=== PATIENT | male | born 2000 | race American Indian/Alaskan Native ===

== ENCOUNTER 2022-01-26 13:26 | Emergency (ER) | payer MEDICAID ==
[2022-01-26 14:32] VITALS: BP 122/63
--- NOTE | 2022-01-26 17:44 | Emergency Department Report ---
ED General Adult HPI - General Chief complaint: Abdominal Pain Stated complaint: ABD PAIN/POSS HERNIA Source: patient Mode of arrival: Ambulatory Limitations: No Limitations - History of Present Illness Initial comments: 22-year-old male presents to the ED with complaint of right inguinal hernia. Patient states he is unable to work due to hernia pain. Patient denies any pain at present time. Patient states that he was told to come to the ED to have to get another referral for general surgery. He states that he had a previous referral at [facility] but did not go. He denies any nausea ,vomiting or abdominal pain at present. Patient is alert and oriented x3. No acute distress noted. No ill appearance noted. Onset/Timin -: week(s) Severity scale (0 -10): 0 Consistency: now resolved Improves with: none Worsens with: movement Associated Symptoms: denies other symptoms Treatments Prior to Arrival: none - Related Data Previous Rx's Medication Instructions Recorded Last Taken Type traMADoL [Ultram] 50 mg PO Q6HR PRN 3 Days #12 tablet 01/26/22 Unknown Rx ED Review of Systems ROS: Stated complaint: ABD PAIN/POSS HERNIA Other details as noted in HPI Constitutional: denies: chills, fever Eyes: denies: eye pain, eye discharge, vision change ENT: denies: ear pain, throat pain Respiratory: denies: cough, shortness of breath, wheezing Cardiovascular: denies: chest pain, palpitations Endocrine: no symptoms reported Gastrointestinal: denies: abdominal pain, nausea, diarrhea Genitourinary: denies: urgency, dysuria Musculoskeletal: denies: back pain, joint swelling, arthralgia Skin: denies: rash, lesions Neurological: denies: headache, weakness, paresthesias Psychiatric: denies: anxiety, depression Hematological/Lymphatic: denies: easy bleeding, easy bruising ED Past Medical Hx - Past Medical History Additional medical history: hernia repair - Surgical History Additional Surgical History: hernia repair - Social History Smoking Status: Never Smoker - Medications Home Medications: Home Medications Medication Instructions Recorded Confirmed Last Taken Type traMADoL [Ultram] 50 mg PO Q6HR PRN 3 Days #12 tablet 01/26/22 Unknown Rx ED Physical Exam - General Limitations: No Limitations General appearance: alert, in no apparent distress - Head Head exam: Present: atraumatic, normocephalic - Eye Eye exam: Present: normal appearance - ENT ENT exam: Present: mucous membranes moist - Neck Neck exam: Present: normal inspection - Respiratory Respiratory exam: Present: normal lung sounds bilaterally. Absent: respiratory distress - Cardiovascular Cardiovascular Exam: Present: regular rate, normal rhythm. Absent: systolic murmur, diastolic murmur, rubs, gallop - GI/Abdominal GI/Abdominal exam: Present: soft, normal bowel sounds - Rectal Rectal exam: Present: deferred - Extremities Exam Extremities exam: Present: normal inspection - Back Exam Back exam: Present: normal inspection - Neurological Exam Neurological exam: Present: alert, oriented X3 - Psychiatric Psychiatric exam: Present: normal affect, normal mood - Skin Skin exam: Present: warm, dry, intact, normal color. Absent: rash ED Course Vital Signs 01/26/22 14:28 Temperature 98.7 F Pulse Rate 63 Respiratory 12 Rate Blood Pressure 122/63 O2 Sat by Pulse 98 Oximetry ED Medical Decision Making - Medical Decision Making 22-year-old male presents to the ED with complaint of right inguinal hernia. Patient states he is unable to work due to hernia pain. Patient denies any pain at present time. Patient states that he was told to come to the ED to have to get another referral for general surgery. He states that he had a previous referral at [facility] but did not go. He denies any nausea ,vomiting or abdominal pain at present. Patient is alert and oriented x3. No acute distress noted. No ill appearance noted. Physical examination is unremarkable. Rechecked the patient is resting quietly quietly and comfortable and feeling better. I discussed the results of diagnostic study, my clinical impression and the plan for further treatment with the patient. Patient agrees with plan and discharge at this present time. All question addressed. I have given the patient instruction regarding a diagnosis ,expectation ,follow- up and return precaution. I explained to the patient that emergent condition may arise and to return to the ED for new worsen and any new persisting condition. I have explained the importance of following up with the primary care physician or referral physician listed below has instructed. The patient verbalized understanding of discharge instruction. Critical care attestation.: If time is entered above; I have spent that time in minutes in the direct care of this critically ill patient, excluding procedure time. ED Disposition Clinical Impression: Right groin hernia Disposition: HOME / SELF CARE / HOMELESS Is pt being admited?: No Does the pt Need Aspirin: No Condition: Stable Instructions: Inguinal Hernia, Adult, [id number] Additional Instructions: Follow-up at [facility] Return to the ED for any worsening symptom Take medication as prescribed Prescriptions: traMADoL [Ultram] 50 mg PO Q6HR PRN 3 Days #12 tablet PRN Reason: Pain Referrals: MEHREEN ROTH DO [Staff Physician] - 3-5 Days Forms: Work/School Release Form(ED) Time of Disposition: 17:49
== END 2022-01-26 18:29 | disposition home or self-care (01) ==
LOC: ED 13:26
DX: K40.90 Unilateral inguinal hernia, without obstruction or gangrene, not specified as recurrent (principal)
CPT/HCPCS: 99282